=== PATIENT | female | born 1970 | race Caucasian/White ===

== ENCOUNTER 2024-07-13 11:07 | Emergency (ER) | payer OTHER, SELFPAY ==
[2024-07-13 11:11] VITALS: BP 189/106
[2024-07-13 12:56] VITALS: BMI 41.6
--- NOTE | 2024-07-13 14:18 | ED.GENMED ---
History of Present Illness
General
Chief Complaint: Musculo-Skeletal Complaint
Source: patient
Exam Limitations: none
Time Seen by Provider: 07/13/24 13:30
Nursing documentation reviewed up to this point in time: agreed with
History of Present Illness
History of Present Illness:
Patient is a 53-year-old female presents ER for evaluation. Patient reports she was walking 12 hours ago and her left leg gave out. She then heard and felt a pop in her left posterior knee. She has pain in her left posterior knee that radiates to
her calf and distal thigh. She is unable to bear full weight and has been using a cane.
No prior history of PE DVT.
Past History
Past History
ED Past Medical History: Other
ED Past Surgical History: Tonsilectomy
Social History
Tobacco: Non-smoker
Alcohol: None
Drug: None
Personal:
Living: with family
Review of Systems
Review of Systems
Allergies reviewed?: Yes
All Other Systems: ROS reviewed and negative except as documented in HPI and ROS
Constitutional: Reports no symptoms
Musculoskeletal: Reports other (left knee pain )
Skin: Reports no symptoms
Neurological: Reports no symptoms
Psychiatric: Reports no symptoms
Phy Exam
General Physical Exam
General Presentation: no apparent distress
General age: appears stated age
General Skin: warm and dry
General Habitus: normal
General Mental: alert
General Hydration: appears well hydrated
Neurological Exam
Neurological Exam: alert and oriented x3
Musculoskeletal Exam
Musculoskeletal Exam: other (LLE with strong distal pulses no obvious swelling to the knee good flexion extensionLigament laxity patient complains of discomfort behind posterior knee with range of motion.)
Skin Exam
Skin Exam: normal color and warm/dry
Psychiatric Exam
Psychiatric Exam: normal mood/affect
Course
Orders/Labs/Results
Orders:
Orders
07/13/24 11:15
Knee, Left 4 or More Views [CR Knee - Left 4 Or More View*] Urgent
Comment:
Reason For Exam: pain
07/13/24 14:16
Venous Doppler Lwr Ext Left [US Periph Venous LOWER Ext LT] Urgent
Comment:
Reason For Exam: pain/popping ; pain to knee calf
07/13/24 14:43
Vital Signs- Treatment ONCE
Frequency: Once
07/13/24 14:45
Knee Immobilizer Left-Treatmen ONCE
Vital Signs
Initial and Last Documented VS:
Initial Vital Signs
Temp Pulse Resp BP Pulse Ox
98.4 F 95 16 189/106 100
07/13/24 11:11 07/13/24 11:11 07/13/24 11:11 07/13/24 11:11 07/13/24 11:11
Last Documented Vital Signs
Temp Pulse Resp BP Pulse Ox
98.4 F 89 16 140/82 100
07/13/24 11:11 07/13/24 15:11 07/13/24 11:11 07/13/24 15:11 07/13/24 11:11
MDM/Problems Addressed
Differential Diagnosis Includes:
Not limited to knee sprain strain ligament injury meniscus injury Lantigua's cyst rupture, less likely DVT
MDM/Problems Addressed:
Symptoms are consistent likely sprain strain. No acute fracture .there is a small joint effusion on x-ray; with pain radiating to calf we will check ultrasound and plan to discharge home with orthopedic follow-up with immobilizer.
1515:
Ultrasound pending at this time. Care transferred to ALFRED Helm.
*Critical Care Note
Total Time (30-74mins, 75-104mins- exclusive of procedures): Not Applicable
ED Attending Note
-
Portions of this chart may have been created with voice recognition software.� Occasional wrong word or��sound alike� substitutions may have occurred due to the inherent limitations of voice recognition software.
Discharge Plan
Departure
Patient Disposition: Home (Routine Discharge)
Patient with high blood pressure during this ER visit?: Yes
Condition: Fair
Covid-19: Not Applicable
Discharge Problem:
Knee sprain
Instructions: Knee Immobilizer (DC), Knee Sprain ED
Prescriptions:
No Action
ondansetron 4 mg tablet,disintegrating
4 mg PO Q8H PRN (Reason: nausea and vomiting) Qty: 10 0RF
Referrals:
Jose Marquez MD [Active] -
Ilene Becerra MD [Family Provider] -
Activity Restrictions/Additional Instructions:
As discussed continue to intermittently ice over the next 24 hours time several times a day. You may continue to take Tylenol. Please closely follow-up with orthopedics .
call Monday for an appointment in the next several days.
Return if any worsening of symptoms.
Interventions
Interventions:
*Risk Screen - Suicide Last Done: 07/13/24 11:11
*General Assessment Last Done: 07/13/24 12:54
*Neglect/Abuse Screening Last Done: 07/13/24 11:11
*ED- Fall Risk Assessment Last Done: 07/13/24 12:54
*ED COVID-19 Vaccine History Last Done: 07/13/24 12:54
*Nursing Disposition Last Done: 07/13/24 16:23
ED-Musculoskeletal Assessment Last Done: 07/13/24 12:55
Discharge Date and Time
Discharge Date/Time: 07/13/24 16:24
Print Language: [place]
[2024-07-13 15:11] VITALS: BP 140/82
== END 2024-07-13 16:24 | disposition home or self-care (01) ==
LOC: EMR 11:07
PROVIDERS: EMERGENCY PHYSICIAN Emergency Medicine; FAMILY PHYSICIAN Internal Medicine
DX: S83.92XA Sprain of unspecified site of left knee, initial encounter (principal); M25.462 Effusion, left knee; X58.XXXA Exposure to other specified factors, initial encounter; Y93.01 Activity, walking, marching and hiking
CPT/HCPCS: 99284; 29505; 73564; 93971

== ENCOUNTER → 2025-01-14 10:54 | Outpatient (REF) | payer OTHER, SELFPAY | LOC: HWWDC 10:54 | PROVIDERS: ATTENDING PHYSICIAN Internal Medicine | DX: Z12.31 Encounter for screening mammogram for malignant neoplasm of breast (principal) | CPT/HCPCS: 77063; 77067 ==